=== PATIENT | female | born 1980 | race Caucasian/White ===

== ENCOUNTER 2016-11-21 23:22 | Emergency (ER) | payer OTHER ==
[~2016-11-21] VITALS: Ht 162.6 cm; Wt 82.2 kg
[~2016-11-21 23:22] MED LIST: ABILIFY; ABILIFY DISCMEL15 MG PO; ABILIFY5 MG PO; ACYCLOVIR400 MG PO; ADVAIR 100/501 DISK IH; ANAPROX DS550 M1 PO; ATARAX,VISTARIL50 MG PO; AUGMENTIN875 MG PO; BACTRIM,SEPT1 TABLET PO; BENTYL10 MG PO; BIRTH CONTROL; BIRTH CONTROL PATCH TD; CIPRO500 MG PO; DAILY VALUE1 EACH PO; DESYREL100 MG PO; FLAGYL500 MG PO; FLEXERIL10 MG PO; FLEXERIL5 MG PO; FLINTSTONES M300 MCG PO; HEMOCYTE324 MG PO; HYDROCODON-ACE1 EAC7 PO; IBUPROFEN800 MG PO; INDOCIN25 MG PO; KEFLEX500 MG PO; LATUDA20 MG PO; LATUDA40 MG PO; LEVAQUIN500 MG PO; LORTAB 5-325 M1 EACH PO; MACROBID100 MG PO; MOBIC7.5 MG PO; MOTRIN IB200 MG PO; MOTRIN600 MG PO; MOTRIN800 MG PO; NAPROSYN500 MG PO; NOHOMEMEDS; NUVARING VAGIN1 EACH PO; NUVARING VAGIN1 EACH VG; PAROXETINE HCL20 MG PO; PAXIL20 MG PO; PEN-VEE K,VEET500 MG PO; PERCOCET 5/31 TABLET PO; PERCOCET 7.51 TABLET PO; PREDNISONE20 MG PO; PREDNISONE5 MG PO; PRENATAL TABLE1 EACH PO; PROAIR HFA8.5 GM IH; PYRIDIUM200 MG PO; REGLAN10 MG PO; SERTRALINE HCL25 MG; TORADOL10 MG PO; TRAMADOL HCL50 MG PO; TRAZODONE HCL PO; TRAZODONE HCL100 MG PO; TYLENOL EXTRA500 M2 PO; TYLENOL WITH C1 EACH PO; ULTRACET1 TABLET PO; ULTRAM50 MG PO; VICODIN,LORT1 TABLET PO; XULANE PATCH1 EACH TD; ZANTAC300 MG PO; ZOFRAN ODT4 MG PO; ZOFRAN4 MG PO; ZOLOFT25 MG; ZOLOFT25 MG PO
[2016-11-22] MEDS ORDERED: NAPROXEN500 MG PO (00:07)
[2016-11-22] MEDS ORDERED: PEN-VEE K,VEET500 MG PO (00:07)
[2016-11-22 00:30] VITALS: BP 107/71
== END 2016-11-22 00:39 | disposition home or self-care (01) ==
LOC: EME 23:22 → EXP 23:22
DX: K08.89 Other specified disorders of teeth and supporting structures (principal)
CPT/HCPCS: 99281; 99284

== ENCOUNTER 2016-12-22 12:11 | Emergency (ER) | payer OTHER ==
[~2016-12-22] VITALS: Ht 162.6 cm; Wt 81.0 kg
[~2016-12-22 12:11] MED LIST changes: +NAPROXEN500 MG PO
[2016-12-22] MEDS ORDERED: ULTRACET1 TABLET PO (13:21)
[2016-12-22] MEDS ORDERED: INDOCIN25 MG PO (13:21)
[2016-12-22 13:40] VITALS: BP 115/80
== END 2016-12-22 13:57 | disposition home or self-care (01) ==
LOC: RME 12:11 → EME 12:11 → RME 13:57
DX: S83.91XA Sprain of unspecified site of right knee, initial encounter (principal); M23.91 Unspecified internal derangement of right knee; X50.0XXA Overexertion from strenuous movement or load, initial encounter; Y93.89 Activity, other specified
CPT/HCPCS: 73564; 99281; 99284

== ENCOUNTER 2017-03-06 13:46 | Emergency (ER) | payer OTHER ==
[~2017-03-06] VITALS: Ht 162.6 cm; Wt 80.3 kg
[2017-03-06 14:10] VITALS: BP 101/68
[2017-03-06] MEDS ORDERED: BENTYL20 MG PO (21:19)
== END 2017-03-06 16:23 | disposition left against medical advice (07) ==
LOC: EME 13:46
DX: R10.9 Unspecified abdominal pain (principal); R11.2 Nausea with vomiting, unspecified; Z53.21 Procedure and treatment not carried out due to patient leaving prior to being seen by health care provider
CPT/HCPCS: 80053; 81003; 84702; 85027

== ENCOUNTER 2017-03-06 17:21 | Emergency (ER) | payer OTHER ==
[~2017-03-06] VITALS: Ht 162.6 cm; Wt 80.3 kg
[2017-03-06 18:44] LABS: HEMATOCRIT 39.1 % (36.0-46.0); MCH 28.4 PG (29.0-34.0); MCV 86.1 FL (83-99); MEAN PLAT.VOLUME 9.6 uM^3 (9.5-12.4); PLATELET COUNT 237 K/uL (156-360); RBC DIS.WIDTH-CV 13.2 % (11.8-14.6); RED BLOOD COUNT 4.54 M/uL (3.80-5.20); WHITE BLOOD COUNT 6.4 K/uL (4.1-10.2)
[2017-03-06 19:02] LABS: CHLORIDE 107 mEq/L (99-109); POTASSIUM 3.7 mEq/L (3.7-5.4); SODIUM 141 mEq/L (136-147)
[2017-03-06 19:04] LABS: GLUCOSE 101 mg/dL (70-99)
[2017-03-06 19:06] LABS: ANION GAP 9 MEQ/L (2-14); TOTAL BILIRUBIN 0.5 mg/dL (0.0-1.0)
[2017-03-06 19:08] LABS: ALKALINE PHOSPHATASE 89 IU/L (3-129); GFR ESTIMATE (CALCULATED) > 59 mL/min/
[2017-03-06 19:09] LABS: UREA NITROGEN (BUN) 11 mg/dL (9-23)
[2017-03-06 19:17] LABS: QUANTITATIVE HCG < 4.0 MIU/ML
[2017-03-06 20:25] LABS: ADD MIUA? YES; BILIRUBIN NEGATIVE; BLOOD NEGATIVE; COLOR YELLOW ((YELLOW)); GLUCOSE (STRIP) NEGATIVE; KETONES 5; LEUKOCYTES NEGATIVE; NITRITE NEGATIVE; PROTEIN (STRIP) NEGATIVE; UROBILINOGEN 0.2 MG/DL (0.2-1.0)
[2017-03-06 20:32] LABS: BACTERIA RARE /HPF; EPITHELIAL CELLS 1+ /HPF; MUCUS 4+ /LPF; RED BLOOD CELLS 0-5 /HPF (0-5); UCUL ADDED? NO; WHITE BLOOD CELLS 0-5 /HPF (0-5)
[2017-03-06] MEDS ORDERED: BENTYL20 MG PO (21:19)
[2017-03-06 22:15] VITALS: BP 102/54
== END 2017-03-06 22:35 | disposition home or self-care (01) ==
LOC: EME 17:21
DX: R10.9 Unspecified abdominal pain (principal); Z87.891 Personal history of nicotine dependence; Z86.73 Personal history of transient ischemic attack (TIA), and cerebral infarction without residual deficits
CPT/HCPCS: 74022; 80053; 81003; 84702; 85027; 99281; 99285

== ENCOUNTER 2017-04-24 22:40 | Emergency (ER) | payer OTHER ==
[~2017-04-24] VITALS: Ht 162.6 cm; Wt 79.0 kg
[~2017-04-24 22:40] MED LIST changes: +BENTYL20 MG PO
[2017-04-24] MEDS ORDERED: PEN-VEE K,VEET500 MG PO (23:24)
[2017-04-24] MEDS ORDERED: INDOCIN50 MG PO (23:24)
[2017-04-24 23:52] VITALS: BP 118/49
== END 2017-04-24 23:53 | disposition home or self-care (01) ==
LOC: EME 22:40
DX: K02.9 Dental caries, unspecified (principal); R60.9 Edema, unspecified; R51 Headache
CPT/HCPCS: 99281; 99283

== ENCOUNTER 2017-05-19 23:13 | Emergency (ER) | payer OTHER ==
[~2017-05-19] VITALS: Ht 162.6 cm; Wt 77.9 kg
[~2017-05-19 23:13] MED LIST changes: +INDOCIN50 MG PO
[2017-05-20 00:48] LABS: ADD MIUA? YES; BILIRUBIN NEGATIVE; BLOOD SMALL; COLOR YELLOW ((YELLOW)); GLUCOSE (STRIP) NEGATIVE; KETONES NEGATIVE; LEUKOCYTES MODERATE; NITRITE NEGATIVE; PROTEIN (STRIP) 30; SPECIFIC GRAVITY 1.024 (1.000-1.030); UROBILINOGEN 0.2 MG/DL (0.2-1.0)
[2017-05-20 00:54] LABS: BACTERIA RARE /HPF; EPITHELIAL CELLS 1+ /HPF; INTERNAL CONTROL VALID? YES; MUCUS TRACE /LPF; UCUL ADDED? NO; WHITE BLOOD CELLS 0-5 /HPF (0-5)
[2017-05-20] MEDS ORDERED: PERCOCET 5/31 TABLET PO (01:36)
[2017-05-20] MEDS ORDERED: KEFLEX500 MG PO (01:36)
[2017-05-20] MEDS ORDERED: PYRIDIUM200 MG PO (01:38)
[2017-05-20 01:58] VITALS: BP 102/70
== END 2017-05-20 01:59 | disposition home or self-care (01) ==
LOC: EME 23:13
DX: N39.0 Urinary tract infection, site not specified (principal); Z86.73 Personal history of transient ischemic attack (TIA), and cerebral infarction without residual deficits; Z88.6 Allergy status to analgesic agent
CPT/HCPCS: 74176; 81003; 84703; 87086; 99281; 99284

== ENCOUNTER 2017-06-16 14:17 | Emergency (ER) | payer OTHER ==
[~2017-06-16] VITALS: Ht 162.6 cm; Wt 79.4 kg
[2017-06-16 16:03] LABS: ADD MIUA? YES; BILIRUBIN NEGATIVE; BLOOD SMALL; COLOR YELLOW ((YELLOW)); GLUCOSE (STRIP) NEGATIVE; KETONES NEGATIVE; LEUKOCYTES NEGATIVE; NITRITE NEGATIVE; PROTEIN (STRIP) NEGATIVE; SPECIFIC GRAVITY 1.021 (1.000-1.030); UROBILINOGEN 0.2 MG/DL (0.2-1.0)
[2017-06-16 16:03] LABS: EOSINOPHIL (%) 2.3 % (0-5); EOSINOPHIL COUNT 0.1 K/uL (0-0.3); HEMATOCRIT 40.7 % (36.0-46.0); IMMATURE GRANULOCYTE (%) 0.2 % (0.0-0.7); INSTRUMENT ABS NEUTROPHIL CT 3.8 K/uL; LYMPHOCYTE COUNT 1.7 K/uL (1.0-2.8); MCH 28.1 PG (29.0-34.0); MCHC 32.2 G/DL (30.0-36.0); MCV 87.3 FL (83-99); MEAN PLAT.VOLUME 9.4 uM^3 (9.5-12.4); MONOCYTE (%) 5.5 % (3-12); MONOCYTE COUNT 0.3 K/uL (0-0.8); NEUTROPHIL (%) 63.4 % (45-76); NEUTROPHIL COUNT 3.8 K/uL (1.8-6.4); PLATELET COUNT 194 K/uL (156-360); RBC DIS.WIDTH-CV 13.4 % (11.8-14.6); RBC DIS.WIDTH-SD 42.6 % (39-53); RED BLOOD COUNT 4.66 M/uL (3.80-5.20); WHITE BLOOD COUNT 6.1 K/uL (4.1-10.2)
[2017-06-16 16:10] LABS: BACTERIA RARE /HPF; CALCIUM OXALATE CRYSTALS 3+ /HPF; EPITHELIAL CELLS RARE /HPF; MUCUS TRACE /LPF; RED BLOOD CELLS 0-5 /HPF (0-5); WHITE BLOOD CELLS 0-5 /HPF (0-5)
[2017-06-16 17:00] VITALS: BP 94/67
== END 2017-06-16 17:00 | disposition home or self-care (01) ==
LOC: RME 14:17 → EME 14:17 → RME 17:00
PROVIDERS: Physician Assistant
DX: R35.0 Frequency of micturition (principal); R30.0 Dysuria; R31.9 Hematuria, unspecified; R10.9 Unspecified abdominal pain
CPT/HCPCS: 81003; 85025; 87086; 99281; 99283

== ENCOUNTER 2017-07-05 23:08 | Emergency (ER) | payer OTHER ==
[~2017-07-05] VITALS: Ht 162.6 cm; Wt 79.2 kg
[2017-07-05 23:30] LABS: ADD MIUA? YES; BILIRUBIN NEGATIVE; BLOOD SMALL; COLOR YELLOW ((YELLOW)); GLUCOSE (STRIP) NEGATIVE; KETONES NEGATIVE; LEUKOCYTES LARGE; NITRITE NEGATIVE; PROTEIN (STRIP) NEGATIVE; SPECIFIC GRAVITY 1.023 (1.000-1.030); UROBILINOGEN 0.2 MG/DL (0.2-1.0)
[2017-07-05 23:42] LABS: AMORPHOUS URATES CRYSTALS 1+; BACTERIA 1+ /HPF; CRYSTALS PRESENT; EPITHELIAL CELLS 2+ /HPF; MUCUS 1+ /LPF; RED BLOOD CELLS 0-5 /HPF (0-5); UCUL ADDED? YES; WHITE BLOOD CELLS 15-20 /HPF (0-5)
[2017-07-06] MEDS ORDERED: MACROBID100 MG PO (00:18)
[2017-07-06] MEDS ORDERED: PYRIDIUM200 MG PO (00:18)
[2017-07-06] MEDS ORDERED: TYLENOL WITH C1 EACH PO (00:19)
[2017-07-06 00:30] VITALS: BP 97/62
== END 2017-07-06 00:31 | disposition home or self-care (01) ==
LOC: EXP 23:08 → EME 23:08 → EXP 07-06 00:31
DX: N39.0 Urinary tract infection, site not specified (principal); Z86.73 Personal history of transient ischemic attack (TIA), and cerebral infarction without residual deficits
CPT/HCPCS: 81003; 87086; 99281; 99283

== ENCOUNTER 2017-07-25 21:33 | Emergency (ER) | payer OTHER ==
[~2017-07-25] VITALS: Ht 162.6 cm; Wt 80.4 kg
[2017-07-25] MEDS ORDERED: MOTRIN600 MG PO (22:59)
[2017-07-25] MEDS ORDERED: TRAMADOL HCL50 MG PO (22:59)
[2017-07-25 23:21] VITALS: BP 105/71
== END 2017-07-25 23:23 | disposition home or self-care (01) ==
LOC: EME 21:33
DX: K08.89 Other specified disorders of teeth and supporting structures (principal)
CPT/HCPCS: 99281; 99284

== ENCOUNTER 2017-08-17 22:32 | Emergency (ER) | payer OTHER ==
[~2017-08-17] VITALS: Ht 154.9 cm; Wt 81.5 kg
[2017-08-17 23:30] VITALS: BP 101/63
== END 2017-08-17 23:30 | disposition home or self-care (01) ==
LOC: EME 22:32
DX: M54.5 Low back pain (principal); M25.551 Pain in right hip; M25.531 Pain in right wrist; W19.XXXA Unspecified fall, initial encounter; Y92.001 Dining room of unspecified non-institutional (private) residence as the place of occurrence of the external cause
CPT/HCPCS: 99281; 99283

== ENCOUNTER 2017-09-06 23:04 | Emergency (ER) | payer OTHER ==
[~2017-09-06] VITALS: Ht 162.6 cm; Wt 81.1 kg
[2017-09-06 23:44] LABS: HEMATOCRIT 38.9 % (36.0-46.0); MCH 28.3 PG (29.0-34.0); MCHC 32.4 G/DL (30.0-36.0); MCV 87.2 FL (83-99); MEAN PLAT.VOLUME 9.6 uM^3 (9.5-12.4); PLATELET COUNT 188 K/uL (156-360); RBC DIS.WIDTH-CV 12.8 % (11.8-14.6); RBC DIS.WIDTH-SD 40.4 % (39-53); RED BLOOD COUNT 4.46 M/uL (3.80-5.20); WHITE BLOOD COUNT 5.7 K/uL (4.1-10.2)
[2017-09-06 23:55] LABS: CHLORIDE 107 mEq/L (99-109); POTASSIUM 3.6 mEq/L (3.7-5.4); SODIUM 141 mEq/L (136-147)
[2017-09-06 23:57] LABS: GLUCOSE 86 mg/dL (70-99)
[2017-09-06 23:58] LABS: ANION GAP 7 MEQ/L (2-14)
[2017-09-06 23:59] LABS: TOTAL BILIRUBIN 0.3 mg/dL (0.0-1.0)
[2017-09-07] LABS: ALKALINE PHOSPHATASE 110 IU/L (3-129); GFR ESTIMATE (CALCULATED) > 59 mL/min/
[2017-09-07 00:02] LABS: UREA NITROGEN (BUN) 8 mg/dL (9-23)
[2017-09-07 00:11] LABS: QUANTITATIVE HCG < 4.0 MIU/ML
[2017-09-07 01:22] LABS: ADD MIUA? YES; BILIRUBIN NEGATIVE; BLOOD SMALL; COLOR YELLOW ((YELLOW)); GLUCOSE (STRIP) NEGATIVE; KETONES NEGATIVE; LEUKOCYTES SMALL; NITRITE NEGATIVE; PROTEIN (STRIP) NEGATIVE; UROBILINOGEN 0.2 MG/DL (0.2-1.0)
[2017-09-07 01:55] LABS: BACTERIA RARE /HPF; CALCIUM OXALATE CRYSTALS 1+ /HPF; EPITHELIAL CELLS RARE /HPF; HYALINE CASTS 0-5 /LPF; MUCUS TRACE /LPF; UCUL ADDED? NO; WHITE BLOOD CELLS 0-5 /HPF (0-5)
[2017-09-07] MEDS ORDERED: BENTYL10 MG PO (02:46)
[2017-09-07] MEDS ORDERED: COLACE100 MG PO (02:46)
[2017-09-07 02:50] VITALS: BP 104/67
== END 2017-09-07 02:53 | disposition home or self-care (01) ==
LOC: EME 23:04
DX: R10.32 Left lower quadrant pain (principal); J45.909 Unspecified asthma, uncomplicated; F41.9 Anxiety disorder, unspecified; F32.9 Major depressive disorder, single episode, unspecified; Z86.73 Personal history of transient ischemic attack (TIA), and cerebral infarction without residual deficits
CPT/HCPCS: 80053; 81003; 84702; 85027; 99281; 99284

== ENCOUNTER 2017-10-04 22:51 | Emergency (ER) | payer OTHER ==
[~2017-10-04] VITALS: Ht 162.6 cm; Wt 85.4 kg
[~2017-10-04 22:51] MED LIST changes: +COLACE100 MG PO
[2017-10-04 23:24] LABS: MCH 27.9 PG (29.0-34.0); MCHC 32.1 G/DL (30.0-36.0); PLATELET COUNT 169 K/uL (156-360); RBC DIS.WIDTH-CV 13.3 % (11.8-14.6); RBC DIS.WIDTH-SD 42.9 % (39-53); RED BLOOD COUNT 4.37 M/uL (3.80-5.20); WHITE BLOOD COUNT 6.6 K/uL (4.1-10.2)
[2017-10-04 23:36] LABS: CHLORIDE 104 mEq/L (99-109); POTASSIUM 3.8 mEq/L (3.7-5.4); SODIUM 138 mEq/L (136-147)
[2017-10-04 23:36] LABS: ADD MIUA? YES; BILIRUBIN NEGATIVE; BLOOD NEGATIVE; COLOR YELLOW ((YELLOW)); GLUCOSE (STRIP) NEGATIVE; KETONES NEGATIVE; LEUKOCYTES NEGATIVE; NITRITE NEGATIVE; PROTEIN (STRIP) NEGATIVE; UROBILINOGEN 0.2 MG/DL (0.2-1.0)
[2017-10-04 23:38] LABS: GLUCOSE 92 mg/dL (70-99)
[2017-10-04 23:39] LABS: ANION GAP 8 MEQ/L (2-14)
[2017-10-04 23:40] LABS: TOTAL BILIRUBIN 0.3 mg/dL (0.0-1.0)
[2017-10-04 23:41] LABS: ALKALINE PHOSPHATASE 110 IU/L (3-129)
[2017-10-04 23:42] LABS: GFR ESTIMATE (CALCULATED) > 59 mL/min/
[2017-10-04 23:43] LABS: UREA NITROGEN (BUN) 11 mg/dL (9-23)
[2017-10-04 23:44] LABS: BACTERIA RARE /HPF; EPITHELIAL CELLS 2+ /HPF; MUCUS NONE SEEN /LPF; RED BLOOD CELLS 0-5 /HPF (0-5); UCUL ADDED? NO; WHITE BLOOD CELLS 0-5 /HPF (0-5)
[2017-10-04 23:50] LABS: QUANTITATIVE HCG 11.6 MIU/ML
[2017-10-05] MEDS ORDERED: ZITHROMAX500 MG PO (01:22)
[2017-10-05] MEDS ORDERED: BENTYL20 MG PO (01:31)
[2017-10-05 01:40] VITALS: BP 100/62
[2017-10-05 01:49] LABS: AMPHETAMINE NEGATIVE (500 ng/mL); BARBITURATES NEGATIVE (200 ng/mL); BENZODIAZEPINES NEGATIVE (150 ng/mL); COCAINE NEGATIVE (150 ng/mL); INTERNAL CONTROLS VALID? YES; METHADONE NEGATIVE (200 ng/mL); METHAMPHETAMINE NEGATIVE (500 ng/mL); OPIATES (MORPHINE) PRESUMPTIVE POSITIVE (100 ng/mL); OXYCODONE NEGATIVE (100 ng/mL); PHENCYCLIDINE NEGATIVE (25 ng/mL); PROPOXYPHENE NEGATIVE (300 ng/mL); THC CANNABINOIDS NEGATIVE (50 ng/mL); TRICYCLIC ANTIDEPRESSANTS NEGATIVE (300 ng/mL)
[2017-10-05 01:50] LABS: ADD MEDTOX COMMENT Y
== END 2017-10-05 01:45 | disposition home or self-care (01) ==
LOC: EME 22:51
DX: J02.9 Acute pharyngitis, unspecified (principal); R10.9 Unspecified abdominal pain; R35.0 Frequency of micturition; Z32.01 Encounter for pregnancy test, result positive
CPT/HCPCS: 80053; 81003; 84702; 84999; 85027; 87651 90; 99281; 99284

== ENCOUNTER 2017-10-07 12:24 | Emergency (ER) | payer OTHER ==
[~2017-10-07] VITALS: Ht 162.6 cm; Wt 86.3 kg
[~2017-10-07 12:24] MED LIST changes: +ZITHROMAX500 MG PO
[2017-10-07 12:33] VITALS: BP 92/65
== END 2017-10-07 17:11 | disposition home or self-care (01) ==
LOC: EME 12:24
DX: O26.851 Spotting complicating pregnancy, first trimester (principal); R10.9 Unspecified abdominal pain; W18.30XA Fall on same level, unspecified, initial encounter; Z3A.01 Less than 8 weeks gestation of pregnancy; Z88.5 Allergy status to narcotic agent; Z88.8 Allergy status to other drugs, medicaments and biological substances
CPT/HCPCS: 76801; 84702; 86900; 86901; 99281; 99284

== ENCOUNTER 2017-10-25 22:38 | Emergency (ER) | payer OTHER ==
[~2017-10-25] VITALS: Ht 162.6 cm; Wt 87.0 kg
[2017-10-26] MEDS ORDERED: ULTRAM50 MG PO (00:07)
[2017-10-26 00:15] VITALS: BP 101/70
== END 2017-10-26 00:15 | disposition home or self-care (01) ==
LOC: EXP 22:38 → EME 22:38 → EXP 10-26 00:15
DX: S93.601A Unspecified sprain of right foot, initial encounter (principal); S63.91XA Sprain of unspecified part of right wrist and hand, initial encounter; X58.XXXA Exposure to other specified factors, initial encounter
CPT/HCPCS: 73130; 73630; 99281; 99283

== ENCOUNTER 2017-11-08 18:50 | Emergency (ER) | payer OTHER ==
[~2017-11-08] VITALS: Ht 162.6 cm; Wt 86.6 kg
[2017-11-08] MEDS ORDERED: PEN-VEE K,VEET500 MG PO (20:44)
[2017-11-08] MEDS ORDERED: TYLENOL WITH C1 EACH PO (20:44)
[2017-11-08 21:17] VITALS: BP 105/56
== END 2017-11-08 21:27 | disposition home or self-care (01) ==
LOC: EME 18:50
DX: K08.89 Other specified disorders of teeth and supporting structures (principal); Z88.6 Allergy status to analgesic agent
CPT/HCPCS: 99281; 99283

== ENCOUNTER 2017-11-16 19:18 | Emergency (ER) | payer OTHER ==
[~2017-11-16] VITALS: Ht 162.6 cm; Wt 85.6 kg
[2017-11-16 19:59] LABS: HEMATOCRIT 38.7 % (36.0-46.0); HEMOGLOBIN 12.7 G/DL (11.9-15.5); MCH 28.4 PG (29.0-34.0); MCHC 32.8 G/DL (30.0-36.0); MCV 86.6 FL (83-99); PLATELET COUNT 148 K/uL (156-360); RBC DIS.WIDTH-CV 13.5 % (11.8-14.6); RBC DIS.WIDTH-SD 42.5 % (39-53); RED BLOOD COUNT 4.47 M/uL (3.80-5.20); WHITE BLOOD COUNT 3.8 K/uL (4.1-10.2)
[2017-11-16 20:06] LABS: APPEARANCE CLOUDY ((CLEAR)); BILIRUBIN NEGATIVE; BLOOD SMALL; COLOR YELLOW ((YELLOW)); GLUCOSE (STRIP) NEGATIVE; KETONES NEGATIVE; LEUKOCYTES MODERATE; NITRITE NEGATIVE; PROTEIN (STRIP) 30; UROBILINOGEN 0.2 MG/DL (0.2-1.0)
[2017-11-16 20:15] LABS: ALBUMIN 3.7 g/dL (3.2-4.8); CHLORIDE 107 mEq/L (99-109); POTASSIUM 3.8 mEq/L (3.7-5.4); SODIUM 140 mEq/L (136-147)
[2017-11-16 20:17] LABS: GLUCOSE 112 mg/dL (70-99); TOTAL PROTEIN 6.6 g/dL (6.4-8.3)
[2017-11-16 20:19] LABS: TOTAL BILIRUBIN 0.2 mg/dL (0.0-1.0)
[2017-11-16 20:21] LABS: ALKALINE PHOSPHATASE 101 IU/L (3-129); CREATININE 0.9 mg/dL (0.6-1.3); GFR ESTIMATE (CALCULATED) > 59 mL/min/
[2017-11-16 20:22] LABS: AST (GOT) 26 IU/L (2-34); UREA NITROGEN (BUN) 15 mg/dL (9-23)
[2017-11-16 20:24] LABS: ALT (GPT) 25 IU/L (3-49)
[2017-11-16 20:32] LABS: RED BLOOD CELLS 0-5 /HPF (0-5)
[2017-11-16 20:33] LABS: EPITHELIAL CELLS 3+ /HPF
[2017-11-16 20:33] LABS: QUANTITATIVE HCG < 4.0 MIU/ML
[2017-11-16 20:34] LABS: BACTERIA 3+ /HPF; UCUL ADDED? YES
[2017-11-16 20:35] LABS: AMORPHOUS URATES CRYSTALS 2+; MUCUS 2+ /LPF
[2017-11-16] MEDS ORDERED: TESSALON PERLE100 MG PO (22:07)
[2017-11-16 22:31] VITALS: BP 94/50
== END 2017-11-16 22:33 | disposition home or self-care (01) ==
LOC: EME 19:18 → RME 19:18
PROVIDERS: Physician Assistant
DX: J10.1 Influenza due to other identified influenza virus with other respiratory manifestations (principal); J45.909 Unspecified asthma, uncomplicated; F41.9 Anxiety disorder, unspecified; F32.9 Major depressive disorder, single episode, unspecified; Z86.73 Personal history of transient ischemic attack (TIA), and cerebral infarction without residual deficits; Z88.6 Allergy status to analgesic agent; Z88.5 Allergy status to narcotic agent
CPT/HCPCS: 71020; 80053; 81003; 84702; 85027; 87086; 87502; 87651 90; 99281; 99284

== ENCOUNTER 2017-11-27 23:33 | Emergency (ER) | payer OTHER ==
[~2017-11-27] VITALS: Ht 162.6 cm; Wt 85.9 kg
[~2017-11-27 23:33] MED LIST changes: +TESSALON PERLE100 MG PO
[2017-11-27 23:57] LABS: APPEARANCE SL.HAZY ((CLEAR)); BILIRUBIN NEGATIVE; BLOOD SMALL; COLOR YELLOW ((YELLOW)); GLUCOSE (STRIP) NEGATIVE; KETONES NEGATIVE; LEUKOCYTES TRACE; NITRITE NEGATIVE; PROTEIN (STRIP) NEGATIVE; SPECIFIC GRAVITY 1.029 (1.000-1.030); UROBILINOGEN 0.2 MG/DL (0.2-1.0)
[2017-11-28 00:14] LABS: BACTERIA 1+ /HPF; EPITHELIAL CELLS RARE /HPF; MUCUS 3+ /LPF; RED BLOOD CELLS 0-5 /HPF (0-5); UCUL ADDED? NO; WHITE BLOOD CELLS 0-5 /HPF (0-5)
[2017-11-28] MEDS ORDERED: LIDODERM 5% P1 PATCH TD (01:14)
[2017-11-28] MEDS ORDERED: ULTRAM50 MG PO (01:14)
[2017-11-28] MEDS ORDERED: MACROBID100 MG PO (01:14)
[2017-11-28 01:46] VITALS: BP 117/64
== END 2017-11-28 01:47 | disposition home or self-care (01) ==
LOC: EME 23:33
PROVIDERS: Emergency Medicine
DX: N30.01 Acute cystitis with hematuria (principal); M54.5 Low back pain; M54.16 Radiculopathy, lumbar region; G89.29 Other chronic pain; Z88.6 Allergy status to analgesic agent; Z88.5 Allergy status to narcotic agent
CPT/HCPCS: 81003; 84703; 99281; 99284

== ENCOUNTER 2017-12-10 22:34 | Emergency (ER) | payer OTHER ==
[~2017-12-10] VITALS: Ht 162.6 cm; Wt 85.1 kg
[~2017-12-10 22:34] MED LIST changes: +LIDODERM 5% P1 PATCH TD
[2017-12-11 01:35] VITALS: BP 109/75
== END 2017-12-11 01:35 | disposition home or self-care (01) ==
LOC: EME 22:34
DX: M79.671 Pain in right foot (principal); Z88.5 Allergy status to narcotic agent; Z88.6 Allergy status to analgesic agent
CPT/HCPCS: 73630

== ENCOUNTER 2018-01-02 22:45 | Emergency (ER) | payer OTHER ==
[~2018-01-02] VITALS: Ht 162.6 cm; Wt 89.4 kg
[2018-01-03 00:01] LABS: APPEARANCE CLEAR ((CLEAR)); BILIRUBIN NEGATIVE; BLOOD NEGATIVE; COLOR YELLOW ((YELLOW)); GLUCOSE (STRIP) NEGATIVE; KETONES NEGATIVE; LEUKOCYTES TRACE; NITRITE NEGATIVE; PROTEIN (STRIP) NEGATIVE; SPECIFIC GRAVITY 1.015 (1.000-1.030); UROBILINOGEN 0.2 MG/DL (0.2-1.0)
[2018-01-03 00:06] LABS: BACTERIA RARE /HPF; EPITHELIAL CELLS RARE /HPF; MUCUS TRACE /LPF; RED BLOOD CELLS 0-5 /HPF (0-5); UCUL ADDED? NO; WHITE BLOOD CELLS 0-5 /HPF (0-5)
[2018-01-03 00:33] VITALS: BP 101/66
== END 2018-01-03 00:33 | disposition home or self-care (01) ==
LOC: EME 22:45
PROVIDERS: Physician Assistant Medical
DX: S60.211A Contusion of right wrist, initial encounter (principal); W10.9XXA Fall (on) (from) unspecified stairs and steps, initial encounter; Z87.891 Personal history of nicotine dependence; Z90.49 Acquired absence of other specified parts of digestive tract; Z88.6 Allergy status to analgesic agent; Z88.5 Allergy status to narcotic agent
CPT/HCPCS: 73110; 81003; 99281; 99283

== ENCOUNTER 2018-01-18 22:58 | Emergency (ER) | payer OTHER ==
[~2018-01-18] VITALS: Ht 162.6 cm; Wt 87.8 kg
[2018-01-18 23:02] VITALS: BP 118/60
[2018-01-19] MEDS ORDERED: MOTRIN400 MG PO (00:48)
[2018-01-19] MEDS ORDERED: ZITHROMAX Z-PA250 MG PO (00:48)
== END 2018-01-19 02:26 | disposition home or self-care (01) ==
LOC: EME 22:58
DX: J20.9 Acute bronchitis, unspecified (principal); M77.31 Calcaneal spur, right foot; J45.909 Unspecified asthma, uncomplicated; F41.9 Anxiety disorder, unspecified; F32.9 Major depressive disorder, single episode, unspecified; Z87.891 Personal history of nicotine dependence; Z86.73 Personal history of transient ischemic attack (TIA), and cerebral infarction without residual deficits; Z88.6 Allergy status to analgesic agent; Z88.5 Allergy status to narcotic agent
CPT/HCPCS: 99281; 99283

== ENCOUNTER 2018-01-25 22:01 | Emergency (ER) | payer OTHER ==
[~2018-01-25] VITALS: Ht 162.6 cm; Wt 90.3 kg
[~2018-01-25 22:01] MED LIST changes: +MOTRIN400 MG PO; +ZITHROMAX Z-PA250 MG PO
[2018-01-25] MEDS ORDERED: PEN-VEE K,VEET500 MG PO (23:23)
[2018-01-25 23:37] VITALS: BP 104/76
== END 2018-01-25 23:35 | disposition home or self-care (01) ==
LOC: EME 22:01
DX: K02.9 Dental caries, unspecified (principal); Z88.6 Allergy status to analgesic agent; Z87.891 Personal history of nicotine dependence
CPT/HCPCS: 99281; 99284

== ENCOUNTER 2018-02-28 00:06 | Emergency (ER) | payer OTHER ==
[~2018-02-28] VITALS: Ht 162.6 cm; Wt 89.9 kg
[2018-02-28 00:32] LABS: APPEARANCE CLEAR ((CLEAR)); BILIRUBIN NEGATIVE; BLOOD NEGATIVE; COLOR YELLOW ((YELLOW)); GLUCOSE (STRIP) NEGATIVE; KETONES NEGATIVE; LEUKOCYTES NEGATIVE; NITRITE NEGATIVE; PROTEIN (STRIP) NEGATIVE; SPECIFIC GRAVITY 1.018 (1.000-1.030); UCUL ADDED? NO; UROBILINOGEN 0.2 MG/DL (0.2-1.0)
[2018-02-28 04:57] LABS: HEMATOCRIT 43.3 % (36.0-46.0); HEMOGLOBIN 14.5 G/DL (11.9-15.5); MCH 28.7 PG (29.0-34.0); MCHC 33.5 G/DL (30.0-36.0); MCV 85.7 FL (83-99); PLATELET COUNT 204 K/uL (156-360); RBC DIS.WIDTH-CV 13.4 % (11.8-14.6); RBC DIS.WIDTH-SD 42.3 % (39-53); RED BLOOD COUNT 5.05 M/uL (3.80-5.20); WHITE BLOOD COUNT 6.4 K/uL (4.1-10.2)
[2018-02-28 05:21] LABS: ALBUMIN 4.7 g/dL (3.2-4.8); CHLORIDE 104 mEq/L (99-109); POTASSIUM 4.2 mEq/L (3.7-5.4); SODIUM 139 mEq/L (136-147)
[2018-02-28 05:23] LABS: GLUCOSE 95 mg/dL (70-99)
[2018-02-28 05:24] LABS: TOTAL PROTEIN 7.3 g/dL (6.4-8.3)
[2018-02-28 05:25] LABS: TOTAL BILIRUBIN 0.3 mg/dL (0.0-1.0)
[2018-02-28 05:27] LABS: ALKALINE PHOSPHATASE 124 IU/L (3-129); CREATININE 0.9 mg/dL (0.6-1.3); GFR ESTIMATE (CALCULATED) > 59 mL/min/
[2018-02-28] MEDS ORDERED: BACTRIM,SEPT1 TABLET PO (05:27)
[2018-02-28 05:28] LABS: UREA NITROGEN (BUN) 12 mg/dL (9-23)
[2018-02-28 05:29] LABS: AST (GOT) 18 IU/L (2-34)
[2018-02-28 05:30] LABS: ALT (GPT) 20 IU/L (3-49)
[2018-02-28 05:49] VITALS: BP 111/75
== END 2018-02-28 05:50 | disposition home or self-care (01) ==
LOC: EME 00:06
PROVIDERS: Emergency Medicine
DX: R10.9 Unspecified abdominal pain (principal); R30.0 Dysuria; J45.909 Unspecified asthma, uncomplicated; M54.5 Low back pain; G89.29 Other chronic pain; F32.9 Major depressive disorder, single episode, unspecified; F41.9 Anxiety disorder, unspecified; Z86.73 Personal history of transient ischemic attack (TIA), and cerebral infarction without residual deficits; Z87.891 Personal history of nicotine dependence; Z88.5 Allergy status to narcotic agent; Z88.6 Allergy status to analgesic agent
CPT/HCPCS: 74176; 80053; 81003; 81025; 85027; 99281; 99285; J1885; J2765

== ENCOUNTER 2018-03-25 23:16 | Emergency (ER) | payer OTHER ==
[~2018-03-25] VITALS: Ht 162.6 cm; Wt 86.9 kg
[2018-03-25 23:38] LABS: APPEARANCE CLEAR ((CLEAR)); BILIRUBIN NEGATIVE; BLOOD NEGATIVE; COLOR YELLOW ((YELLOW)); GLUCOSE (STRIP) NEGATIVE; KETONES NEGATIVE; LEUKOCYTES NEGATIVE; NITRITE NEGATIVE; PROTEIN (STRIP) NEGATIVE; SPECIFIC GRAVITY 1.018 (1.000-1.030); UCUL ADDED? NO; UROBILINOGEN 0.2 MG/DL (0.2-1.0)
[2018-03-26 00:39] VITALS: BP 112/69
== END 2018-03-26 00:40 | disposition home or self-care (01) ==
LOC: EME 23:16
DX: S39.012A Strain of muscle, fascia and tendon of lower back, initial encounter (principal); Z88.6 Allergy status to analgesic agent; Z88.5 Allergy status to narcotic agent
CPT/HCPCS: 81003; 99281; 99283

== ENCOUNTER 2018-04-24 22:50 | Emergency (ER) | payer OTHER ==
[~2018-04-24] VITALS: Ht 162.6 cm; Wt 86.2 kg
[2018-04-25 00:43] LABS: HEMATOCRIT 42.2 % (36.0-46.0); HEMOGLOBIN 14.4 G/DL (11.9-15.5); MCH 29.2 PG (29.0-34.0); MCHC 34.1 G/DL (30.0-36.0); MCV 85.6 FL (83-99); PLATELET COUNT 196 K/uL (156-360); RBC DIS.WIDTH-CV 13.3 % (11.8-14.6); RBC DIS.WIDTH-SD 41.6 % (39-53); RED BLOOD COUNT 4.93 M/uL (3.80-5.20); WHITE BLOOD COUNT 5.8 K/uL (4.1-10.2)
[2018-04-25 00:55] LABS: ALBUMIN 4.5 g/dL (3.2-4.8)
[2018-04-25 00:56] LABS: CHLORIDE 104 mEq/L (99-109); SODIUM 139 mEq/L (136-147)
[2018-04-25 00:58] LABS: GLUCOSE 101 mg/dL (70-99); TOTAL PROTEIN 7.1 g/dL (6.4-8.3)
[2018-04-25 01:00] LABS: TOTAL BILIRUBIN 0.2 mg/dL (0.0-1.0)
[2018-04-25 01:01] LABS: ALKALINE PHOSPHATASE 116 IU/L (3-129)
[2018-04-25 01:02] LABS: CREATININE 0.8 mg/dL (0.6-1.3); GFR ESTIMATE (CALCULATED) > 59 mL/min/
[2018-04-25 01:03] LABS: AST (GOT) 19 IU/L (2-34); UREA NITROGEN (BUN) 11 mg/dL (9-23)
[2018-04-25 01:04] LABS: ALT (GPT) 22 IU/L (3-49)
[2018-04-25 01:05] LABS: LIPASE 30 U/L (1.0-51.0)
[2018-04-25 01:11] LABS: QUANTITATIVE HCG < 4.0 MIU/ML
[2018-04-25 01:48] LABS: APPEARANCE SL.HAZY ((CLEAR)); BILIRUBIN NEGATIVE; BLOOD NEGATIVE; COLOR YELLOW ((YELLOW)); GLUCOSE (STRIP) NEGATIVE; KETONES NEGATIVE; LEUKOCYTES SMALL; NITRITE NEGATIVE; PROTEIN (STRIP) NEGATIVE; SPECIFIC GRAVITY 1.025 (1.000-1.030)
[2018-04-25 01:56] LABS: BACTERIA RARE /HPF; EPITHELIAL CELLS 1+ /HPF; MUCUS 1+ /LPF; UCUL ADDED? NO; WHITE BLOOD CELLS 0-5 /HPF (0-5)
[2018-04-25] MEDS ORDERED: MOTRIN600 MG PO (02:05)
[2018-04-25] MEDS ORDERED: ZOFRAN4 MG PO (02:05)
[2018-04-25 02:13] VITALS: BP 102/65
== END 2018-04-25 02:13 | disposition home or self-care (01) ==
LOC: EME 22:50
PROVIDERS: Emergency Medicine
DX: R10.11 Right upper quadrant pain (principal); R11.2 Nausea with vomiting, unspecified; Z90.49 Acquired absence of other specified parts of digestive tract; J45.909 Unspecified asthma, uncomplicated; F41.9 Anxiety disorder, unspecified; F32.9 Major depressive disorder, single episode, unspecified; Z86.73 Personal history of transient ischemic attack (TIA), and cerebral infarction without residual deficits; Z87.01 Personal history of pneumonia (recurrent); Z87.440 Personal history of urinary (tract) infections; Z88.5 Allergy status to narcotic agent; Z88.6 Allergy status to analgesic agent
CPT/HCPCS: 76705; 80053; 81003; 83690; 84702; 85027; 99281; 99284

== ENCOUNTER 2018-07-03 00:49 | Emergency (ER) | payer OTHER ==
[~2018-07-03] VITALS: Ht 154.9 cm; Wt 84.5 kg
[2018-07-03] MEDS ORDERED: PEN-VEE K,VEET500 MG PO (02:09)
[2018-07-03] MEDS ORDERED: TYLENOL WITH C1 EACH PO (02:09)
[2018-07-03 02:27] VITALS: BP 101/55
== END 2018-07-03 02:31 | disposition home or self-care (01) ==
LOC: EME 00:49
DX: K02.9 Dental caries, unspecified (principal); J45.909 Unspecified asthma, uncomplicated; F41.9 Anxiety disorder, unspecified; F32.9 Major depressive disorder, single episode, unspecified; Z87.01 Personal history of pneumonia (recurrent); Z87.440 Personal history of urinary (tract) infections; Z86.73 Personal history of transient ischemic attack (TIA), and cerebral infarction without residual deficits; Z90.49 Acquired absence of other specified parts of digestive tract; Z88.6 Allergy status to analgesic agent; Z88.5 Allergy status to narcotic agent
CPT/HCPCS: 99281; 99284

== ENCOUNTER 2018-07-12 00:45 | Emergency (ER) | payer OTHER ==
[~2018-07-12] VITALS: Ht 162.6 cm; Wt 83.8 kg
[2018-07-12] MEDS ORDERED: IBU800 MG PO (03:53)
[2018-07-12 04:40] VITALS: BP 124/86
== END 2018-07-12 04:41 | disposition home or self-care (01) ==
LOC: EME 00:45
DX: M25.571 Pain in right ankle and joints of right foot (principal); R22.41 Localized swelling, mass and lump, right lower limb; F32.9 Major depressive disorder, single episode, unspecified; F41.9 Anxiety disorder, unspecified; J45.909 Unspecified asthma, uncomplicated; Z86.73 Personal history of transient ischemic attack (TIA), and cerebral infarction without residual deficits; Z88.5 Allergy status to narcotic agent; Z88.6 Allergy status to analgesic agent
CPT/HCPCS: 73610; 93971; 99281; 99284